=== PATIENT | male | born 1975 | race Caucasian/White ===

== ENCOUNTER 2023-06-08 12:21 | Emergency (ER) | payer OTHER ==
[2023-06-08] MEDS ORDERED: Lidocaine 1% 20 ML MDV INJECT ONE (13:14)
[2023-06-08] MEDS ORDERED: Bacitracin Oint 1 GM U/D Packet TOP ONE (13:48)
[2023-06-08] MEDS ORDERED: Diphtheria,Pertussis(Acell),Tetanus Vaccine 0.5 ML Syringe IM ONE (13:49)
== END 2023-06-08 14:10 | disposition home or self-care (01) ==
LOC: JP.ED 12:21
DX: S51.812A Laceration without foreign body of left forearm, initial encounter (principal); Z23 Encounter for immunization; W45.8XXA Other foreign body or object entering through skin, initial encounter
CPT/HCPCS: 12002; 90471; 90715; 99282-25